=== PATIENT | female | born 1955 | race Caucasian/White ===

== ENCOUNTER 2021-08-02 19:18 | Emergency (ER) | payer OTHER, MEDICARE ==
[2021-08-02 19:30] VITALS: BMI 31.4
[2021-08-02] MEDS ORDERED: FAMOTIDINE 10 MG TABLET PO ONE (20:20)
[2021-08-02] MEDS ORDERED: MAG HYDROX/AL HYDROX/SIMETH -MYLANTA- ORAL SUSPENSION PO ONE (20:20)
[2021-08-02] MEDS ORDERED: MAG HYDROX/AL HYDROX/SIMETH 30 ML UNIT-DOSE CUP ONE (20:24)
[2021-08-02] MEDS ORDERED: FAMOTIDINE 20 MG TABLET ONE (20:24)
[2021-08-02 20:49] LABS: BASO % 0.8 % (0-2.0); EOS % 1.4 % (0-4.5); HEMATOCRIT 39.8 % (32.4-45.2); HEMOGLOBIN 13.5 GM/dL (10.7-15.3); LYMPH % 38.9 % (8-40); MCH 31.1 pg (25.7-33.7); MCHC 33.9 g/dl (32.0-36.0); MEAN CELL VOLUME 91.8 fl (80-96); MEAN PLT VOLUME 11.5 fl (7.5-11.1); MONO % 7.6 % (3.8-10.2); NEUT % 51.3 % (42.8-82.8); PLATELET COUNT 171 10^3/uL (134-434); RBC 4.34 M/mm3 (3.60-5.2); RDW 13.4 % (11.6-15.6); WHITE BLOOD COUNT 8.4 K/mm3 (4.0-10.0)
[2021-08-02 21:05] LABS: CALCIUM 9.9 mg/dL (8.5-10.1)
[2021-08-02 21:06] LABS: ALBUMIN 3.9 g/dl (3.4-5.0); BLOOD UREA NITROGEN 22.3 mg/dL (7-18)
[2021-08-02 21:09] LABS: CREATININE 1.6 mg/dL (0.55-1.3)
[2021-08-02 21:10] LABS: BILIRUBIN,TOTAL 0.4 mg/dL (0.2-1); TOT PROT 8.1 g/dl (6.4-8.2)
[2021-08-02] MEDS ORDERED: LACTATED RINGERS SOLUTION 1,000 ML/1,000 ML INFUS.BAG IV SCH (21:15)
[2021-08-02 23:48] LABS: PH,URINE 5.5 (5.0-8.0); URINE APPEARANCE CLEAR; URINE BILIRUBIN NEGATIVE (NEGATIVE); URINE COLOR YELLOW; URINE GLUCOSE (UA) NEGATIVE (NEGATIVE); URINE KETONE NEGATIVE (NEGATIVE); URINE LEUK ESTERASE NEGATIVE (NEGATIVE); URINE NITRITE NEGATIVE (NEGATIVE); URINE PROTEIN NEGATIVE (NEGATIVE); URINE UROBILINOGEN 0.2 mg/dL (0.2-1.0)
[2021-08-03] MEDS ORDERED: ACETAMINOPHEN 1000 MG/100 ML BAG IVPB ONE (01:02)
[2021-08-03] MEDS ORDERED: ACETAMINOPHEN INJECTION 100 ML IVPB ONE (01:17)
[2021-08-03 01:27] VITALS: BP 114/75; PULSE 60; TEMP 97.8
[2021-08-03 02:39] LABS: CALCIUM 9.5 mg/dL (8.5-10.1)
[2021-08-03 02:43] LABS: CREATININE 1.3 mg/dL (0.55-1.3)
== END 2021-08-03 03:05 | disposition home or self-care (01) ==
LOC: JER 19:18
PROC: 3E0333Z Introduction of Anti-inflammatory into Peripheral Vein, Percutaneous Approach (ICD-10-PCS; principal; 2021-08-02)
DX: R10.84 Generalized abdominal pain (principal)
CPT/HCPCS: 36415; 76705-TC; 80048; 80053; 81003; 83690; 85025; 87086; 93005; 93010; 99285-25